=== PATIENT | male | born 2000 | race Caucasian/White ===

== ENCOUNTER 2023-07-24 08:02 | Emergency (ER) | payer SELFPAY ==
[~2023-07-24] VITALS: Ht 175.3 cm; Wt 87.5 kg
[2023-07-24 08:21] VITALS: BP 120/70; PULSE 63; RESP 18; TEMP 97.3; O2SAT 98
[2023-07-24] MEDS ORDERED: ALUMINUM HYD/MAG/SIMETHICONE 30 ML UDC ONE (09:15)
[2023-07-24] MEDS ORDERED: DICYCLOMINE HCL LIQUID 10 MG/5 ML UDC ONE (09:16)
[2023-07-24] MEDS: DICYCLOMINE HCL LIQUID 20 MG, ALUMINUM HYD/MAG/SIMETHICONE 30 ML, LIDOCAINE VISCOUS 2% ... PO ONE (09:19)
[2023-07-24] MEDS: PANTOPRAZOLE 40 MG TABEC PO ONE (09:21)
[2023-07-24] MEDS: ONDANSETRON 4 MG ODT PO ONE (09:21)
[2023-07-24] MEDS ORDERED: MAG355OR2 PO (10:04)
[2023-07-24] MEDS ORDERED: FAMO-90 PO (10:04)
[2023-07-24 10:18] VITALS: BP 116/70; PULSE 62; RESP 14; TEMP 98; O2SAT 100
== END 2023-07-24 10:18 | disposition home or self-care (01) ==
LOC: MED 08:02
DX: K29.70 Gastritis, unspecified, without bleeding (principal); Z79.899 Other long term (current) drug therapy
CPT/HCPCS: 99283; Q0162